=== PATIENT | female | born 2000 | race Caucasian/White ===

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

== ENCOUNTER 2022-02-20 21:04 | Emergency (ER) | payer MEDICAID ==
[2022-02-20] MEDS ORDERED: XYLOCAINE 1% HCL 20 ML MDV IJ ONE (21:05)
--- NOTE | 2022-02-20 21:14 | ERPHSYRPT ---
- History of Present Illness Time Seen by Provider: 02/20/22 21:14 Source: patient Exam Limitations: no limitations Physician History: This is a 21-year-old white female patient who states she is not and who is sexually active. She is concerned that she may have a sexually transmitted disease. She has had no vaginal discharge. She does have dysuria. She has some "bumps" on the skin around her vagina externally. She also has pain in the anal area with each bowel movement. She is passing small amount of blood with each bowel movement. She stated that these findings occurred in the last 2 days. She had anal sex for the first time a few days ago. She has no abdominal pain. She has no chest pain. She has no shortness of breath. She denies fever and she denies cough. She has no known exposure to anyone with an STD. Timing/Duration: day(s) (Last several days) Activites at Onset: sexual activity Quality: burning (With urination and defecation), other (Painful defecation) Onset Location: vaginal, other (Anal) Severity of Pain-Max: moderate (With bowel movement) Severity of Pain-Current: mild (Moderate with bowel movement) Prior abdominal problems: none Sexual intercourse history: single partner, unprotected intercourse Modifying Factors: Improves With: defecating (Worsens) Allergies/Adverse Reactions: No Known Drug Allergies Allergy (Unverified 12/09/20 01:03) Home Medications: Vits W-Ca,Fe,FA(<1Mg) [] 1 tab PO DAILY 12/09/20 [History] Hx Tetanus, Diphtheria Vaccination/Date Given: Yes Hx Influenza Vaccination/Date Given: No Hx Pneumococcal Vaccination/Date Given: No Travel Risk - International Travel Have you traveled outside of the country in past 3 weeks: No - Coronavirus Screening Are you exhibiting any of the following symptoms?: No Close contact with a COVID-19 positive Pt in past 14-21 Days: No - Vaccine Status Have you recieved a Covid-19 vaccination: No - Review of Systems Constitutional: No Symptoms Eyes: No Symptoms Ears, Nose, & Throat: No Symptoms Respiratory: No Symptoms Cardiac: No Symptoms Abdominal/Gastrointestinal: No Symptoms Genitourinary Symptoms: Dysuria, Vaginal Itching Musculoskeletal: No Symptoms Skin: No Symptoms Neurological: No Symptoms Psychological: No Symptoms Endocrine: No Symptoms Hematologic/Lymphatic: No Symptoms Immunological/Allergic: No Symptoms All Other Systems: Reviewed and Negative - Past Medical History Pertinent Past Medical History: Yes Neurological History: No Pertinent History ENT History: No Pertinent History Cardiac History: No Pertinent History Respiratory History: Asthma Endocrine Medical History: No Pertinent History Musculoskeletal History: No Pertinent History GI Medical History: No Pertinent History History: No Pertinent History Psycho-Social History: No Pertinent History Female Reproductive Disorders: No Pertinent History - Past Surgical History Past Surgical History: No Neuro Surgical History: No Pertinent History Cardiac: No Pertinent History Respiratory: No Pertinent History Gastrointestinal: No Pertinent History Genitourinary: No Pertinent History Musculoskeletal: No Pertinent History Female Surgical History: No Pertinent History - Social History Smoking Status: Former smoker Exposure to second hand smoke: No Drug Use: marijuana Patient Lives Alone: No - Nursing Vital Signs Nursing Vital Signs: Initial Vital Signs Temperature 97.9 F 02/20/22 21:16 Pulse Rate 87 02/20/22 21:16 Respiratory Rate 16 02/20/22 21:16 Blood Pressure 109/67 02/20/22 21:16 O2 Sat by Pulse Oximetry 94 L 02/20/22 21:16 Pain Scale Pain Intensity 5 - Physical Exam General Appearance: no apparent distress, alert, anxiety Eye Exam: PERRL/EOMI, eyes nml inspection Ears, Nose, Throat Exam: normal ENT inspection, moist mucous membranes Neck Exam: normal inspection, non-tender, supple, full range of motion Respiratory Exam: normal breath sounds, lungs clear, airway intact, No chest tenderness, No respiratory distress Cardiovascular Exam: regular rate/rhythm, normal heart sounds, normal peripheral pulses Gastrointestinal/Abdomen Exam: soft, normal bowel sounds, No tenderness, No guarding Pelvic Exam: other (External perivaginal area and labial skin with slightly pink and raised lesions more consistent with folliculitis post shaving. No cellulitis. No obvious external signs of STDs) Extremity Exam: normal inspection, normal range of motion, pelvis stable Neurologic Exam: alert, oriented x 3, cooperative, ict sales representative II-XII nml as tested, normal mood/affect, nml cerebellar function, nml station & gait, sensation nml Skin Exam: normal color, warm, dry Lymphatic Exam: No adenopathy SpO2 Interpretation: normal O2 Delivery: Room Air - Course Nursing assessment & vital signs reviewed: Yes Ordered Tests: Active Orders 24 hr Category Date Time Status HCG,QUALITATIVE URINE Stat Lab 02/20/22 21:33 Completed Medication Summary Generic Name Dose Route Start Last Admin Trade Name Vannessa PRN Reason Stop Dose Admin Ceftriaxone Sodium 1,000 mg 02/20/22 23:43 Ceftriaxone Sodium 1000 Mg Inj Vial IM 02/20/22 23:44 STAT ONE Discontinued Medications Generic Name Dose Route Start Last Admin Trade Name Vannessa PRN Reason Stop Dose Admin Hydrocodone Bitart/Acetaminophen 1 tab 02/20/22 23:24 02/20/22 23:40 Hydrocodone/Apap 5/325 Mg Tablet PO 02/20/22 23:25 1 tab STAT ONE Administration Hydrocodone Bitart/Acetaminophen Confirm 02/20/22 23:40 Hydrocodone/Apap 5/325 Mg Tablet Administered 02/20/22 23:41 Dose 1 tab .ROUTE .STK-MED ONE Lab/Rad Data: Laboratory Results 02/20/22 02/20/22 02/20/22 Range/Units 21:33 21:33 21:33 Urinalys Dipstick Clnc MAIN LAB Urine Color YELLOW (YELLOW) Urine Appearance CLOUDY (CLEAR) Urine pH 7.5 (5-6) Ur Specific [place] 1.020 (1.005-1.025) POC Urine Protein Conf NEGATIVE (Negative) Urine Ketones NEGATIVE (NEGATIVE) Urine Nitrite NEGATIVE (NEGATIVE) Urine Bilirubin NEGATIVE (NEGATIVE) Urine Urobilinogen 4 (0-1) mg/dL Urine Leukocytes TRACE (NEGATIVE) Urine WBC (Auto) 3-5 (0-5) /HPF Urine RBC (Auto) NONE (0-2) /HPF U Epithel Cells (Auto) FEW (FEW) /HPF Urine Bacteria (Auto) NONE SEEN (NEGATIVE) /HPF Urine RBC NEGATIVE (0-5) Hayes/ul Amorphous Crystals MODERATE (NEGATIVE) /HPF Other Casts (Auto) >50 (NEGATIVE) /LPF Urine Mucus (Auto) SLIGHT (NEGATIVE) /HPF Ur Culture Indicated? NO Urine Glucose NEGATIVE (NEGATIVE) mg/dL Urine HCG, Qual NEGATIVE (Negative) Chlamydia DNA Probe NOT DETECTED (NEGATIVE) N.gonorrhoeae DNA Probe NOT DETECTED (NEGATIVE) - Progress Progress: unchanged Air Movement: good Progress Note: 02/20/22 23:45 This patient is very concerned about a sexually transmitted disease. Chlamydia and gonorrhea are both negative. She does have a mild urinary tract infection. She states that she does get yeast infections when on antibiotics and we are providing her with Diflucan 150 mg orally 1 time. We will be providing the patient with an injection intramuscularly of 1 g of Rocephin. She was informed that this medication will cover urinary tract infection and many STDs. We will also write a prescription for Cipro and Flagyl for home. Antibiotics given: Yes Counseled pt/family regarding: lab results, need for follow-up - Departure Departure Disposition: Home Clinical Impression: Anal fissure, UTI (urinary tract infection) Condition: Stable Critical Care Time: No Referrals: PAUL VEGA [Primary Care Provider] - Follow up/PCP as directed Additional Instructions: Avoid anything penetrating the anus. Warm sitz bath's with warm soapy water or Epson salts 2-3 times a day. Keep your bowel movements soft. Increase the amount of fiber in your diet. Drink plenty of fluids each day. May try [id number] topical anesthetic agents such as lidocaine cream and apply directly to the area per the instructions of the product. If symptoms persist beyond 4 weeks or worsen, seek out referral to a public health sanitarian or general surgeon. Prescriptions: Ciprofloxacin [Cipro 500 MG] 500 mg PO BID #14 tablet Metronidazole 500 mg [Flagyl 500 MG] 500 mg PO TID #21 tablet
[2022-02-20 22:06] LABS: Appearance CLOUDY (CLEAR); Bilirubin NEGATIVE (NEGATIVE); Dipstick done @ ? MAIN LAB; Glucose NEGATIVE (NEGATIVE); Ketones NEGATIVE (NEGATIVE); Nitrite NEGATIVE (NEGATIVE); Ph 7.5 (5-6); Protein,Urine Dip NEGATIVE (Negative); RBC NEGATIVE Ery/ul (0-5); Urobilinogen 4 mg/dL (0-1)
[2022-02-20 22:10] LABS: Amourphous Crystal MODERATE /HPF (NEGATIVE); Epithelial Cells FEW /HPF (FEW); Mucus SLIGHT /HPF (NEGATIVE)
[2022-02-20 22:17] LABS: Bacteria NONE SEEN /HPF (NEGATIVE)
[2022-02-20 22:18] LABS: Urine Cultured Indicated? NO
[2022-02-20] MEDS ORDERED: NORCO 5/325 MG PO ONE (23:24)
[2022-02-20 23:35] LABS: CHLAMYDIA DNA NOT DETECTED (NEGATIVE); GC DNA Probe NOT DETECTED (NEGATIVE)
[2022-02-20] MEDS ORDERED: NORCO 5/325 MG ONE (23:40)
[2022-02-20] MEDS ORDERED: Rocephin 1000 MG INJ IM ONE (23:43)
[2022-02-20] MEDS ORDERED: Flagyl 500 MG PO ONE (23:44)
[2022-02-20] MEDS ORDERED: DIFLUCAN PO ONE (23:44)
[2022-02-20 23:47] VITALS: BP 100/64; PULSE 64; O2SAT 100
[2022-02-20] MEDS ORDERED: Rocephin 1000 MG INJ ONE (23:48)
[2022-02-20] MEDS ORDERED: Flagyl 500 MG ONE (23:48)
[2022-02-20] MEDS ORDERED: Diflucan 100 MG ONE (23:51)
== END 2022-02-21 00:28 | disposition home or self-care (01) ==
LOC: ED 21:04
DX: N39.0 Urinary tract infection, site not specified (principal); K60.2 Anal fissure, unspecified; R30.0 Dysuria; K92.1 Melena; Z72.89 Other problems related to lifestyle
CPT/HCPCS: 81015; 84703; 87491; 87591; 96372; 99284; J0696; A9270-GY

== ENCOUNTER 2023-04-21 16:49 | Observation (INO) | payer MEDICAID ==
[2023-04-21 17:27] LABS: Amphetamine,Urine NEGATIVE (NEGATIVE); Barbiturate,Urine NEGATIVE (NEGATIVE); Benzodiazepine,Urine NEGATIVE (NEGATIVE); Cocaine,Urine NEGATIVE (NEGATIVE); Methadone,Urine NEGATIVE (NEGATIVE); Opiate,Urine NEGATIVE (NEGATIVE); PCP,Urine NEGATIVE (NEGATIVE); THC,Urine NEGATIVE (NEGATIVE)
[2023-04-21 17:43] VITALS: O2SAT 97
[2023-04-21 20:39] VITALS: BP 126/83; PULSE 86
--- NOTE | 2023-04-21 22:18 | XRAY ---
Indication: Bleeding and cramping. Ultrasound biophysical profile exam performed. Comparison: None Single intrauterine with heart rate 149 BPM. Four-quadrant SWATI is 10.4 cm, largest pocket 5.6 cm. 2 points given for breathing, movements, tone, and amniotic fluid volume. Impression: Total biophysical profile score is 8 out of 8.
== END 2023-04-21 21:25 | disposition home or self-care (01) ==
LOC: OB 16:49
PROVIDERS: ADMIT Obstetrics & Gynecology; ATTEND Obstetrics & Gynecology
DX: Z34.03 Encounter for supervision of normal first pregnancy, third trimester (principal); Z3A.40 40 weeks gestation of pregnancy
CPT/HCPCS: 76819; 80307; G0378; G0379

== ENCOUNTER 2023-04-22 05:48 | Inpatient (IN) | payer MEDICAID ==
[2023-04-22] MEDS ORDERED: XYLOCAINE 1% HCL 20 ML MDV IJ PRN (06:09)
[2023-04-22] MEDS ORDERED: TYLENOL EXTRA STRENGTH 500 MG PO PRN (06:14)
[2023-04-22] MEDS ORDERED: Lactated Ringers 1,000 ML IV SCH (06:30)
[2023-04-22 06:45] LABS: Absolute Neutrophil Ct (ANC) 12.17 x10^3/uL (1.4-6.9); BASOPHIL % 0.3 % (0.0-0.4); Basophil (Absolute #) 0.04 x10^3/uL (0-0.4); Eosinophil % 0.4 % (0.00-5.0); Eosinophil (Absolute #) 0.06 x10^3/uL (0-0.5); Hematocrit 33.1 % (35-47); Hemoglobin 9.8 g/dL (12.0-16.0); IMMATURE GRAN # 0.09 x10^3u/L (0.00-0.03); IMMATURE GRAN % 0.6 % (0.00-0.4); Lymphocyte (Absolute #) 1.25 x10^3/uL (1.0-4.6); Lymphocytes % 8.7 % (24.0-44.0); Mean Cell Volume 76.6 fL (78-100); Mean Corpuscular Hemoglobin 22.7 pg (26-32); Mean Corpuscular Hgb Concent. 29.6 g/dL (32-36); Monocyte (Absolute #) 0.84 x10^3/uL (0.0-1.3); Monocytes % 5.8 % (0.0-12.0); Neutrophil % 84.2 % (36.0-66.0); Platelet Count 327 x10^3/uL (150-450); Red Blood Count 4.32 x10^6/uL (4.1-5.4); Red Cell Distribution Width 15.9 % (11.5-14.0); White Blood Count 14.5 x10^3/uL (4.0-10.5)
[2023-04-22] MEDS ORDERED: Ephedrine Sulfate 50 MG/ML IV PRN (07:03)
[2023-04-22] MEDS ORDERED: Lactated Ringers 1,000 ML IV ONE (07:03)
[2023-04-22] MEDS: PITOCIN 30 UNITS/ LR 500 ML 30 UNITS/500 ML PLAST..BAG IV SCH ×2 (07:11→10:09)
[2023-04-22] MEDS ORDERED: FENTANYL 2 MCG-BUPIV 0.125%-NS 250 ML Epidur 250 ML EPIDURAL SCH (07:15)
[2023-04-22 07:33] LABS: ABO TYPING B; Antibody Screen NEGATIVE (NEGATIVE); RH TYPING POSITIVE
[2023-04-22] MEDS ORDERED: OMNIPEN 2 GM*** 2 G in Sodium Chloride 100ML MINI-BAG PLUS 100 ML IV ONE (08:00)
--- NOTE | 2023-04-22 09:18 | PCM.HP ---
History of Present Illness - Chief Complaint Chief Complaint: r/o labor History of Present Illness: is a 22 year old female. 21 iup 40 4/7 wks gestation with no significant pmhx currently being seen for care in [place] here for being in labor stephanie every 2 to 3 minutes without srom. states uneventful care however no record available. Medications & Allergies Home Medications: Home Medication List Metronidazole 500 mg [Flagyl 500 MG] 500 mg PO BID 7 Days #14 tablet 12/09/20 [Rx] Nitrofurantoin Macro 100 mg [Macrobid 100MG Capsule] 100 mg PO BID 7 Days #14 capsule 12/09/20 [Rx] Vits W-Ca,Fe,FA(<1Mg) [] 1 tab PO DAILY 12/09/20 [History Confirmed 12/09/20] Ciprofloxacin [Cipro 500 MG] 500 mg PO BID #14 tablet 02/20/22 [Rx] Metronidazole 500 mg [Flagyl 500 MG] 500 mg PO TID #21 tablet 02/20/22 [Rx] Allergies/Adverse Reactions: Allergies Allergy/AdvReac Type Severity Reaction Status Date / Time No Known Drug Allergies Allergy Unverified 12/09/20 01:03 - Past Medical History Past Medical History: Yes Neurological History: No Pertinent History ENT History: No Pertinent History Cardiac History: No Pertinent History Respiratory History: Asthma Endocrine Medical History: No Pertinent History Musculoskelatal History: No Pertinent History GI Medical History: No Pertinent History History: No Pertinent History Pyscho-Social History: No Pertinent History Reproductive Disorders: No Pertinent History - Female History Expected Date of Delivery: 04/17/23 - Past Surgical History Past Surgical History: No Neuro Surgical History: No Pertinent History Cardiac History: No Pertinent History Respiratory Surgery: No Pertinent History GI Surgical History: No Pertinent History (vapes 10 times a day) Genitourinary Surgical Hx: No Pertinent History Musculskeletal Surgical Hx: No Pertinent History Female Surgical History: No Pertinent History - Social History Smoking Status: Former smoker How long have you smoked: 7 yrs Exposure to second hand smoke: No Alcohol: None Drug Use: marijuana - Physical Exam Vital Signs: Vital Signs - 24 hr Temp Pulse Resp BP BP Pulse Ox 04/22/23 07:04 16 04/22/23 06:30 98.1 F 75 16 125/76 98 04/22/23 06:09 99.3 F 80 16 125/76 100 04/22/23 05:59 99.3 F 80 16 125/76 100 04/22/23 05:48 99.3 F 80 16 125/76 100 Neurologic Exam: alert Cardiovascular Exam: regular rate/rhythm Pelvic Exam: other (/-2/vtx/intact upon admission) Results - Labs Lab/Micro Results: Lab Results-Last 24 Hours 04/22/23 04/22/23 Range/Units 06:30 06:30 WBC 14.5 H (4.0-10.5) x10^3/uL RBC 4.32 (4.1-5.4) x10^6/uL Hgb 9.8 L (12.0-16.0) g/dL Hct 33.1 L (35-47) % MCV 76.6 L (78-100) fL MCH 22.7 L (26-32) pg MCHC 29.6 L (32-36) g/dL RDW 15.9 H (11.5-14.0) % Plt Count 327 (150-450) x10^3/uL MPV 10.0 (7.5-11.0) fL Gran % 84.2 H (36.0-66.0) % Immature Gran % (Auto) 0.6 H (0.00-0.4) % Nucleat RBC Rel Count 0.0 (0.00-0.1) % Eos # (Auto) 0.06 (0-0.5) x10^3/uL Immature Gran # (Auto) 0.09 H (0.00-0.03) x10^3u/L Absolute Lymphs (auto) 1.25 (1.0-4.6) x10^3/uL Absolute Monos (auto) 0.84 (0.0-1.3) x10^3/uL Absolute Nucleated RBC 0.00 (0.00-0.01) x10^3u/L Lymphocytes % 8.7 L (24.0-44.0) % Monocytes % 5.8 (0.0-12.0) % Eosinophils % 0.4 (0.00-5.0) % Basophils % 0.3 (0.0-0.4) % Absolute Granulocytes 12.17 H (1.4-6.9) x10^3/uL Basophils # 0.04 (0-0.4) x10^3/uL ABO Group B Rh Factor POSITIVE Antibody Screen NEGATIVE (NEGATIVE) Assessment/Plan (1) Abdominal pain affecting Current Visit: Yes Status: Acute Code(s): O26.899 - OTH RELATED CONDITIONS, UNSPECIFIED TRIMESTER; R10.9 - UNSPECIFIED ABDOMINAL PAIN
[2023-04-22 10:07] LABS: Appearance Clear (Clear); Bilirubin Negative (Negative); Blood Negative (Negative); Glucose, Urine Negative (Negative); Ketones 15 (Negative); Leukocyte Esterase Negative (Negative); Nitrite Negative (Negative); Protein,Urine Dip 30 (Negative); Specific Gravity 1.025 (1.005-1.030)
[2023-04-22] MEDS ORDERED: Dermoplast Spray TP PRN (10:24)
[2023-04-22] MEDS ORDERED: LANSINOH 40 GM TOP PRN (10:24)
[2023-04-22] MEDS ORDERED: Mylicon 80MG PO PRN (10:24)
[2023-04-22 10:25] LABS: Bacteria None Seen /HPF (None Seen); Epithelial Cells Rare /HPF (None Seen); Hyaline Casts NONE SEEN /LPF (0-2); RBC 0-2 /HPF (0-5)
[2023-04-22 10:26] LABS: ADD URINE CULTURE? ORDERED SEPARATELY (NO)
[2023-04-22] MEDS ORDERED: Adacel Vial IM ONE (11:00)
[2023-04-22] MEDS ORDERED: TUCKS TP PRN (12:08)
[2023-04-23 05:58] LABS: Absolute Neutrophil Ct (ANC) 7.94 x10^3/uL (1.4-6.9); BASOPHIL % 0.3 % (0.0-0.4); Basophil (Absolute #) 0.03 x10^3/uL (0-0.4); Eosinophil % 1.3 % (0.00-5.0); Eosinophil (Absolute #) 0.14 x10^3/uL (0-0.5); Hematocrit 24.9 % (35-47); IMMATURE GRAN # 0.06 x10^3u/L (0.00-0.03); IMMATURE GRAN % 0.6 % (0.00-0.4); Lymphocyte (Absolute #) 1.83 x10^3/uL (1.0-4.6); Lymphocytes % 16.8 % (24.0-44.0); Mean Cell Volume 75.7 fL (78-100); Mean Corpuscular Hemoglobin 23.1 pg (26-32); Mean Corpuscular Hgb Concent. 30.5 g/dL (32-36); Mean Platelet Volume 10.6 fL (7.5-11.0); Monocyte (Absolute #) 0.88 x10^3/uL (0.0-1.3); Monocytes % 8.1 % (0.0-12.0); Neutrophil % 72.9 % (36.0-66.0); Platelet Count 280 x10^3/uL (150-450); Red Blood Count 3.29 x10^6/uL (4.1-5.4); Red Cell Distribution Width 15.9 % (11.5-14.0); White Blood Count 10.9 x10^3/uL (4.0-10.5)
[2023-04-23 06:40] LABS: Hemoglobin 7.6 g/dL (12.0-16.0)
[2023-04-23] MEDS: MOTRIN 400 MG PO PRN (08:37)
[2023-04-23] MEDS: Docusate Sodium 100 MG PO SCH ×2 (08:39→22:28)
[2023-04-23] MEDS ORDERED: FERREX 150 PO SCH (10:00)
--- NOTE | 2023-04-23 10:21 | PCM.NOTE ---
Date and Time: 04/23/23 1019 Subjective Assessment: ppd 1 sp pt resting in bed and doing well able to ambulate and tolerate diet. vss afebrile abd; soft uterus; firm lochia; mild hgb; 7.6 a/p sp ppd 1 anemia will give iron supplementation while in hospital tid will dc home tomorrow should fu in office in 3 wks OBJECTIVE DATA Vital Signs: Vital Signs - 24 hr Temp Pulse Resp BP Pulse Ox 04/23/23 08:00 98.3 F 87 18 125/80 98 04/23/23 06:00 97 04/23/23 05:00 97 04/23/23 04:00 98 04/23/23 03:00 97 04/23/23 02:00 98.4 F 87 16 129/61 99 04/23/23 01:29 98.4 F 87 16 129/61 97 04/23/23 01:00 96 04/23/23 00:00 98 04/22/23 23:00 99 04/22/23 22:00 99 04/22/23 21:00 100 04/22/23 20:00 98.4 F 80 18 127/78 97 04/22/23 16:20 98.1 F 80 18 127/73 98 04/22/23 14:00 97.7 F 81 20 137/72 100 04/22/23 13:30 109 H 20 128/83 99 04/22/23 13:00 86 20 122/78 100 04/22/23 12:30 97.7 F 80 20 121/71 99 04/22/23 12:00 97.7 F 68 20 119/69 100 04/22/23 11:45 97.7 F 71 18 118/65 98 04/22/23 11:30 97.7 F 81 18 123/81 98 04/22/23 11:15 97.7 F 71 18 108/54 97 04/22/23 11:00 97.7 F 18 118/55 98 04/22/23 10:45 97.7 F 72 18 109/62 96 Pain Assessment - Last Documented Pain Intensity [Bilateral 0 Lower Anterior/Posterior] Pain Intensity 0 Pain Scale Used 0-10 Pain Scale Intake and Output: Intake & Output 04/20/23 04/21/23 04/22/23 04/23/23 11:59 11:59 11:59 11:59 Intake Total 500 Output Total 500 Balance 0 Lab Results: Lab Results-Last 24 Hours 04/22/23 04/23/23 Range/Units 08:15 05:27 WBC 10.9 H (4.0-10.5) x10^3/uL RBC 3.29 L (4.1-5.4) x10^6/uL Hgb 7.6 L D (12.0-16.0) g/dL Hct 24.9 L (35-47) % MCV 75.7 L (78-100) fL MCH 23.1 L (26-32) pg MCHC 30.5 L (32-36) g/dL RDW 15.9 H (11.5-14.0) % Plt Count 280 (150-450) x10^3/uL MPV 10.6 (7.5-11.0) fL Gran % 72.9 H (36.0-66.0) % Immature Gran % (Auto) 0.6 H (0.00-0.4) % Nucleat RBC Rel Count 0.0 (0.00-0.1) % Eos # (Auto) 0.14 (0-0.5) x10^3/uL Immature Gran # (Auto) 0.06 H (0.00-0.03) x10^3u/L Absolute Lymphs (auto) 1.83 (1.0-4.6) x10^3/uL Absolute Monos (auto) 0.88 (0.0-1.3) x10^3/uL Absolute Nucleated RBC 0.00 (0.00-0.01) x10^3u/L Lymphocytes % 16.8 L (24.0-44.0) % Monocytes % 8.1 (0.0-12.0) % Eosinophils % 1.3 (0.00-5.0) % Basophils % 0.3 (0.0-0.4) % Absolute Granulocytes 7.94 H (1.4-6.9) x10^3/uL Basophils # 0.03 (0-0.4) x10^3/uL Urine Color Yellow (Yellow) Urine Appearance Clear (Clear) Urine pH 7.0 (4.6-8.0) Ur Specific [place] 1.025 (1.005-1.030) Urine Protein 30 (Negative) Urine Glucose (UA) Negative (Negative) mg/dL Urine Ketones 15 A (Negative) Urine Blood Negative (Negative) Urine Nitrite Negative (Negative) Urine Bilirubin Negative (Negative) Urine Urobilinogen 1.0 A (0.2) mg/dL Ur Leukocyte Esterase Negative (Negative) U Hyaline Cast (Auto) NONE SEEN (0-2) /LPF Urine Microscopic RBC 0-2 (0-5) /HPF Urine Microscopic WBC 3-5 (0-5) /HPF Ur Epithelial Cells Rare (None Seen) /HPF Urine Bacteria None Seen (None Seen) /HPF Urine Culture Reflexed ORDERED SEPARATELY (NO) Assessment/Plan (1) Abdominal pain affecting Current Visit: Yes Status: Acute Code(s): O26.899 - OTH RELATED CONDITIONS, UNSPECIFIED TRIMESTER; R10.9 - UNSPECIFIED ABDOMINAL PAIN (2) Vaginal delivery Current Visit: Yes Status: Acute Code(s): O80 - ENCOUNTER FOR FULL-TERM UNCOMPLICATED DELIVERY (3) anemia Current Visit: Yes Status: Acute Code(s): O90.81 - ANEMIA OF THE PUERPERIUM
--- NOTE | 2023-04-23 10:26 | PCM.DS ---
Discharge Summary Date of Admission: 04/22/23 09:25 Admitting Physician: SAUL GABRIEL DO Consults: Consults on Case 04/22/23 07:04 Notify Anesthesia Provider COREY 04/22/23 15:15 Navigation ONCE Primary Care Provider: PAUL VEGA Allergies Allergies No Known Drug Allergies Allergy (Unverified 12/09/20 01:03) Hospital Summary - Hospital Course Hospital Course: 23 yo who was at 40 4/7 wks gestation was admitted for labor and had been seeing providers in [place] for care. denies any medical issues upon admission. pt presented at 3 cm dilated and progressed very well and delivered live baby girl without complication live baby girl on april 22. during period did well and had a stable hgb at 7.6 and was not symptomatic. pt was able to ambulate and tolerate diet. pt was advised to take iron supplementation twice daily upon discharge and was advised to fu in office in 3 wks. all questions answered to her satisfaction as pt is stable for discharge on april 24. - Vitals & Intake/Output Vital Signs: Vital Signs Temperature 98.3 F 04/23/23 08:00 Pulse Rate 87 04/23/23 08:00 Respiratory Rate 18 04/23/23 08:00 Blood Pressure 125/80 04/23/23 08:00 O2 Sat by Pulse Oximetry 98 04/23/23 08:00 Intake & Output: Intake & Output 04/20/23 04/21/23 04/22/23 04/23/23 11:59 11:59 11:59 11:59 Intake Total 500 Output Total 500 Balance 0 - Lab Result Diagrams: 04/23/23 05:27 Lab Results-Last 24 Hrs: Lab Results-Last 24 Hours 04/22/23 04/23/23 Range/Units 08:15 05:27 WBC 10.9 H (4.0-10.5) x10^3/uL RBC 3.29 L (4.1-5.4) x10^6/uL Hgb 7.6 L D (12.0-16.0) g/dL Hct 24.9 L (35-47) % MCV 75.7 L (78-100) fL MCH 23.1 L (26-32) pg MCHC 30.5 L (32-36) g/dL RDW 15.9 H (11.5-14.0) % Plt Count 280 (150-450) x10^3/uL MPV 10.6 (7.5-11.0) fL Gran % 72.9 H (36.0-66.0) % Immature Gran % (Auto) 0.6 H (0.00-0.4) % Nucleat RBC Rel Count 0.0 (0.00-0.1) % Eos # (Auto) 0.14 (0-0.5) x10^3/uL Immature Gran # (Auto) 0.06 H (0.00-0.03) x10^3u/L Absolute Lymphs (auto) 1.83 (1.0-4.6) x10^3/uL Absolute Monos (auto) 0.88 (0.0-1.3) x10^3/uL Absolute Nucleated RBC 0.00 (0.00-0.01) x10^3u/L Lymphocytes % 16.8 L (24.0-44.0) % Monocytes % 8.1 (0.0-12.0) % Eosinophils % 1.3 (0.00-5.0) % Basophils % 0.3 (0.0-0.4) % Absolute Granulocytes 7.94 H (1.4-6.9) x10^3/uL Basophils # 0.03 (0-0.4) x10^3/uL Urine Color Yellow (Yellow) Urine Appearance Clear (Clear) Urine pH 7.0 (4.6-8.0) Ur Specific [place] 1.025 (1.005-1.030) Urine Protein 30 (Negative) Urine Glucose (UA) Negative (Negative) mg/dL Urine Ketones 15 A (Negative) Urine Blood Negative (Negative) Urine Nitrite Negative (Negative) Urine Bilirubin Negative (Negative) Urine Urobilinogen 1.0 A (0.2) mg/dL Ur Leukocyte Esterase Negative (Negative) U Hyaline Cast (Auto) NONE SEEN (0-2) /LPF Urine Microscopic RBC 0-2 (0-5) /HPF Urine Microscopic WBC 3-5 (0-5) /HPF Ur Epithelial Cells Rare (None Seen) /HPF Urine Bacteria None Seen (None Seen) /HPF Urine Culture Reflexed ORDERED SEPARATELY (NO) Final Diagnosis/Problem List - Final Discharge Diagnosis/Problem (1) Abdominal pain affecting Current Visit: Yes Status: Acute Code(s): O26.899 - OTH RELATED CONDITIONS, UNSPECIFIED TRIMESTER; R10.9 - UNSPECIFIED ABDOMINAL PAIN (2) Vaginal delivery Current Visit: Yes Status: Acute Code(s): O80 - ENCOUNTER FOR FULL-TERM UNCOMPLICATED DELIVERY (3) anemia Current Visit: Yes Status: Acute Code(s): O90.81 - ANEMIA OF THE PUERPERIUM - Discharge Disposition: Home, Self-Care Condition: Stable Prescriptions: No Action Vits W-Ca,Fe,FA(<1Mg) [] 1 tab PO DAILY Nitrofurantoin Macro 100 mg [Macrobid 100MG Capsule] 100 mg PO BID 7 Days #14 capsule Metronidazole 500 mg [Flagyl 500 MG] 500 mg PO BID 7 Days #14 tablet Ciprofloxacin [Cipro 500 MG] 500 mg PO BID #14 tablet Metronidazole 500 mg [Flagyl 500 MG] 500 mg PO TID #21 tablet Follow up with: PAUL VEGA [Primary Care Provider] - SAUL GABRIEL DO [ACTIVE STAFF] - 3 weeks (should take iron supplementation twice daily)
[2023-04-23] MEDS: FEOSOL 325 MG PO SCH ×2 (18:59→22:12)
[2023-04-24] MEDS: MOTRIN 400 MG PO PRN ×2 (01:41→15:03)
[2023-04-24 02:13] VITALS: O2SAT 96
[2023-04-24 09:46] VITALS: BP 117/73; PULSE 88
[2023-04-24 10:02] LABS: Varicella Zoster IgG 271 index (Immune >165)
[2023-04-24] MEDS: Docusate Sodium 100 MG PO SCH (10:14)
[2023-04-24] MEDS: FEOSOL 325 MG PO SCH (10:14)
[2023-04-25 06:09] LABS: RPR Non Reactive (Non Reactive)
[2023-04-25 07:38] LABS: HIV Screen 4th Generation wRfx Non Reactive (Non Reactive)
[2023-04-25 07:39] LABS: HBsAg Screen Negative (Negative)
== END 2023-04-24 15:25 | disposition home or self-care (01) | DRG 807 ==
LOC: OB 05:48 → OBSVTOIN 09:25
PROVIDERS: ADMIT Obstetrics & Gynecology; ATTEND Obstetrics & Gynecology
PROC: 10E0XZZ Delivery of Products of Conception, External Approach (ICD-10-PCS; principal; 2023-04-22)
PROC: 0KQM0ZZ Repair Perineum Muscle, Open Approach (ICD-10-PCS; 2023-04-22)
DX: O69.81X0 Labor and delivery complicated by cord around neck, without compression, not applicable or unspecified (principal); Z37.0 Single live birth; O70.1 Second degree perineal laceration during delivery; O90.81 Anemia of the puerperium; Z3A.40 40 weeks gestation of pregnancy; Z20.828 Contact with and (suspected) exposure to other viral communicable diseases
CPT/HCPCS: 36415; 59409; 81001; 84443; 85025; 86592; 86762; 86787; 86850; 86900; 86901; 87086; 87340; 87389; 90715; 96372; J0290; J2590; A9270-GY

== ENCOUNTER 2024-11-01 16:01 | Observation (INO) | payer OTHER ==
[2024-11-01 16:56] VITALS: BP 115/64; PULSE 95; RESP 18; TEMP 97.7; O2SAT 100
[2024-11-01 17:13] LABS: Appearance Clear (Clear); Bacteria None Seen /HPF (None Seen); Bilirubin Negative (Negative); Blood Negative (Negative); Epithelial Cells Rare /HPF (None Seen); Glucose, Urine Negative (Negative); Hyaline Casts NONE SEEN /LPF (0-2); Ketones Negative (Negative); Leukocyte Esterase Trace (Negative); Nitrite Negative (Negative); Protein,Urine Dip Negative (Negative); RBC 0-2 /HPF (0-5)
[2024-11-01 17:17] LABS: Absolute Neutrophil Ct (ANC) 7.34 x10^3/uL (1.56-6.13); BASOPHIL % 0.2 % (0.1-1.2); Basophil (Absolute #) 0.02 x10^3/uL (0.01-0.08); Eosinophil % 1.3 % (0.7-5.8); Eosinophil (Absolute #) 0.13 x10^3/uL (0.04-0.36); Hematocrit 27.8 % (34.1-44.9); Hemoglobin 8.7 g/dL (11.2-15.7); IMMATURE GRAN # 0.06 x10^3u/L (0.001-0.031); IMMATURE GRAN % 0.6 % (0.001-0.429); Lymphocyte (Absolute #) 1.42 x10^3/uL (1.18-3.74); Lymphocytes % 14.5 % (19.3-51.7); Mean Corpuscular Hemoglobin 25.4 pg (25.6-32.2); Mean Corpuscular Hgb Concent. 31.3 g/dL (32.2-35.5); Monocyte (Absolute #) 0.82 x10^3/uL (0.24-0.86); Monocytes % 8.4 % (4.7-12.5); Platelet Count 262 x10^3/uL (182-369); Red Blood Count 3.43 x10^6/uL (3.93-5.22); White Blood Count 9.8 x10^3/uL (3.98-10.04)
[2024-11-01 17:29] LABS: Amphetamine,Urine NEGATIVE (NEGATIVE); Barbiturate,Urine NEGATIVE (NEGATIVE); Benzodiazepine,Urine NEGATIVE (NEGATIVE); Cocaine,Urine NEGATIVE (NEGATIVE); Methadone,Urine NEGATIVE (NEGATIVE); Opiate,Urine NEGATIVE (NEGATIVE); PCP,Urine NEGATIVE (NEGATIVE); THC,Urine NEGATIVE (NEGATIVE)
== END 2024-11-01 18:15 | disposition home or self-care (01) ==
LOC: OB 16:01
PROVIDERS: ADMIT Obstetrics & Gynecology; ATTEND Obstetrics & Gynecology
DX: Z48.3 Aftercare following surgery for neoplasm (principal); Z3A.30 30 weeks gestation of pregnancy
CPT/HCPCS: 36415; 80307; 81001; 85025; G0378; G0379

== ENCOUNTER 2024-12-29 08:32 | Inpatient (IN) | payer OTHER ==
[2024-12-29 19:39] LABS: Absolute Neutrophil Ct (ANC) 7.35 x10^3/uL (1.56-6.13); BASOPHIL % 0.2 % (0.1-1.2); Basophil (Absolute #) 0.02 x10^3/uL (0.01-0.08); Eosinophil % 0.8 % (0.7-5.8); Eosinophil (Absolute #) 0.08 x10^3/uL (0.04-0.36); Hematocrit 31.2 % (34.1-44.9); Hemoglobin 9.7 g/dL (11.2-15.7); IMMATURE GRAN # 0.07 x10^3u/L (0.001-0.031); IMMATURE GRAN % 0.7 % (0.001-0.429); Lymphocyte (Absolute #) 1.48 x10^3/uL (1.18-3.74); Lymphocytes % 15.5 % (19.3-51.7); Mean Cell Volume 75.7 fL (79.4-94.8); Mean Corpuscular Hemoglobin 23.5 pg (25.6-32.2); Mean Corpuscular Hgb Concent. 31.1 g/dL (32.2-35.5); Mean Platelet Volume 10.4 fL (9.4-12.3); Monocyte (Absolute #) 0.57 x10^3/uL (0.24-0.86); Neutrophil % 76.8 % (34.0-71.1); Platelet Count 265 x10^3/uL (182-369); Red Blood Count 4.12 x10^6/uL (3.93-5.22); White Blood Count 9.6 x10^3/uL (3.98-10.04)
[2024-12-29] MEDS: PITOCIN 30 UNITS/ LR 500 ML 30 UNITS/500 ML PLAST..BAG IV SCH (19:57)
[2024-12-29] MEDS: Lactated Ringers 1,000 ML IV SCH (19:57)
[2024-12-29 19:58] LABS: Amphetamine,Urine NEGATIVE (NEGATIVE); Barbiturate,Urine NEGATIVE (NEGATIVE); Benzodiazepine,Urine NEGATIVE (NEGATIVE); Cocaine,Urine NEGATIVE (NEGATIVE); Methadone,Urine NEGATIVE (NEGATIVE); Opiate,Urine NEGATIVE (NEGATIVE); PCP,Urine NEGATIVE (NEGATIVE); THC,Urine NEGATIVE (NEGATIVE)
[2024-12-29 20:38] LABS: ABO TYPING B; Antibody Screen NEGATIVE (NEGATIVE); RH TYPING POSITIVE
[2024-12-30] MEDS ORDERED: Ephedrine Sulfate 50 MG/ML IV PRN (07:12)
[2024-12-30] MEDS: Lactated Ringers 1,000 ML IV ONE (07:22)
[2024-12-30] MEDS: FENTANYL 2 MCG-BUPIV 0.125%-NS 250 ML Epidur 250 ML EPIDURAL SCH (07:22)
[2024-12-30] MEDS: Zofran 4 MG/2 ML VIAL IV PRN (10:29)
[2024-12-30] MEDS: Dermoplast Spray TP PRN (12:40)
[2024-12-30] MEDS: TUCKS TP PRN (12:41)
[2024-12-30] MEDS: MOTRIN 400 MG PO PRN (16:51)
[2024-12-30] MEDS: FEOSOL 325 MG PO SCH ×2 (17:39→23:35)
[2024-12-30] MEDS: Docusate Sodium 100 MG PO SCH (21:53)
[2024-12-30] MEDS: CORTISONE 1% CREAM TP PRN (21:54)
[2024-12-30] MEDS: LANSINOH 40 GM TOP PRN (21:56)
[2024-12-31 04:49] LABS: BASOPHIL % 0.3 % (0.1-1.2); Basophil (Absolute #) 0.03 x10^3/uL (0.01-0.08); Eosinophil % 0.8 % (0.7-5.8); Eosinophil (Absolute #) 0.09 x10^3/uL (0.04-0.36); Hematocrit 30.4 % (34.1-44.9); Hemoglobin 9.2 g/dL (11.2-15.7); IMMATURE GRAN # 0.07 x10^3u/L (0.001-0.031); IMMATURE GRAN % 0.6 % (0.001-0.429); Lymphocyte (Absolute #) 2.18 x10^3/uL (1.18-3.74); Lymphocytes % 18.8 % (19.3-51.7); Mean Cell Volume 76.8 fL (79.4-94.8); Mean Corpuscular Hemoglobin 23.2 pg (25.6-32.2); Mean Corpuscular Hgb Concent. 30.3 g/dL (32.2-35.5); Monocyte (Absolute #) 0.83 x10^3/uL (0.24-0.86); Monocytes % 7.2 % (4.7-12.5); Neutrophil % 72.3 % (34.0-71.1); Platelet Count 261 x10^3/uL (182-369); Red Blood Count 3.96 x10^6/uL (3.93-5.22); White Blood Count 11.6 x10^3/uL (3.98-10.04)
[2024-12-31 08:24] LABS: RPR Non Reactive (Non Reactive)
[2024-12-31] MEDS ORDERED: FERREX 150 PO SCH (10:00)
--- NOTE | 2024-12-31 16:28 | PCM.NOTE ---
Date and Time: 12/31/24 1626 Subjective Assessment: ppd 1 sp pt resting in bed and doing well ambulating and tolerating diet vss afebrile abd; soft uterus; firm lochia; mild hgb; 9.2 a/p sp ppd 1 dc home tomorrow fu office in 3 wks Objective Data Vital Signs: Vital Signs - 24 hr Temp Pulse Resp BP Pulse Ox 12/31/24 16:00 98.8 F 68 14 113/61 97 12/31/24 08:00 98.2 F 88 14 117/60 99 12/31/24 04:05 65 18 112/58 96 12/31/24 01:00 98.3 F 65 18 112/58 96 12/30/24 22:26 98.2 F 64 16 114/64 100 12/30/24 19:40 98.0 F 63 16 111/56 99 12/30/24 18:30 97.7 F 62 18 108/58 98 12/30/24 18:00 97.7 F 18 102/63 100 12/30/24 17:00 97.9 F 56 L 18 108/66 100 12/30/24 16:30 97.7 F 70 18 107/63 100 Pain Assessment - Last Documented Pain Intensity [Lower Anterior 0 ] Pain Intensity 2 Pain Scale Used 0-10 Pain Scale Intake and Output: Intake & Output 12/29/24 12/30/24 12/31/24 01/01/25 11:59 11:59 11:59 11:59 Intake Total 3100 Output Total 2362 Balance 738 Weight 73.028 kg Lab Results: Lab Results-Last 24 Hours 12/29/24 12/31/24 Range/Units 19:29 04:48 WBC 11.6 H (3.98-10.04) x10^3/uL RBC 3.96 (3.93-5.22) x10^6/uL Hgb 9.2 L (11.2-15.7) g/dL Hct 30.4 L (34.1-44.9) % MCV 76.8 L (79.4-94.8) fL MCH 23.2 L (25.6-32.2) pg MCHC 30.3 L (32.2-35.5) g/dL RDW 17.0 H (11.7-14.4) % Plt Count 261 (182-369) x10^3/uL MPV 10.0 (9.4-12.3) fL Gran % 72.3 H (34.0-71.1) % Immature Gran % (Auto) 0.6 H (0.001-0.429) % Nucleat RBC Rel Count 0.0 (0.00-0.2) % Eos # (Auto) 0.09 (0.04-0.36) x10^3/uL Immature Gran # (Auto) 0.07 H (0.001-0.031) x10^3u/L Absolute Lymphs (auto) 2.18 (1.18-3.74) x10^3/uL Absolute Monos (auto) 0.83 (0.24-0.86) x10^3/uL Absolute Nucleated RBC 0.00 (0.00-0.012) x10^3u/L Lymphocytes % 18.8 L (19.3-51.7) % Monocytes % 7.2 (4.7-12.5) % Eosinophils % 0.8 (0.7-5.8) % Basophils % 0.3 (0.1-1.2) % Absolute Granulocytes 8.40 H (1.56-6.13) x10^3/uL Basophils # 0.03 (0.01-0.08) x10^3/uL RPR Non Reactive (Non Reactive) Assessment/Plan (1) Vaginal delivery Current Visit: No Status: Acute Code(s): O80 - ENCOUNTER FOR FULL-TERM UNCOMPLICATED DELIVERY
--- NOTE | 2024-12-31 16:32 | PCM.DS ---
Discharge Summary Date of Admission: 12/30/24 08:32 Admitting Physician: SAUL GABRIEL DO Consults: Consults on Case 12/30/24 16:03 Navigation ONCE Primary Care Provider: NO FAMILY DOCTOR Allergies Allergies No Known Drug Allergies Allergy (Unverified 12/09/20 01:03) Hospital Summary - Hospital Course Hospital Course: pt admitted on dec 29 for low dose pitocin at 39 wks gestation and subsequently delivered on dec 30 live baby boy without complication with no perineal tear that was noted. during care did well able to ambulate and tolerate diet and was noted having a hgb at 9.2 and was instructed to take her iron supplementation twice daily. she was also advised to fu in office in 3 wks. all questions answered to her satisfaction. - Vitals & Intake/Output Vital Signs: Vital Signs Temperature 98.8 F 12/31/24 16:00 Pulse Rate 68 12/31/24 16:00 Respiratory Rate 14 12/31/24 16:00 Blood Pressure 113/61 12/31/24 16:00 O2 Sat by Pulse Oximetry 97 12/31/24 16:00 Intake & Output: Intake & Output 12/29/24 12/30/24 12/31/24 01/01/25 11:59 11:59 11:59 11:59 Intake Total 3100 Output Total 2362 Balance 738 Weight 73.028 kg - Lab Result Diagrams: 12/31/24 04:48 Lab Results-Last 24 Hrs: Lab Results-Last 24 Hours 12/29/24 12/31/24 Range/Units 19:29 04:48 WBC 11.6 H (3.98-10.04) x10^3/uL RBC 3.96 (3.93-5.22) x10^6/uL Hgb 9.2 L (11.2-15.7) g/dL Hct 30.4 L (34.1-44.9) % MCV 76.8 L (79.4-94.8) fL MCH 23.2 L (25.6-32.2) pg MCHC 30.3 L (32.2-35.5) g/dL RDW 17.0 H (11.7-14.4) % Plt Count 261 (182-369) x10^3/uL MPV 10.0 (9.4-12.3) fL Gran % 72.3 H (34.0-71.1) % Immature Gran % (Auto) 0.6 H (0.001-0.429) % Nucleat RBC Rel Count 0.0 (0.00-0.2) % Eos # (Auto) 0.09 (0.04-0.36) x10^3/uL Immature Gran # (Auto) 0.07 H (0.001-0.031) x10^3u/L Absolute Lymphs (auto) 2.18 (1.18-3.74) x10^3/uL Absolute Monos (auto) 0.83 (0.24-0.86) x10^3/uL Absolute Nucleated RBC 0.00 (0.00-0.012) x10^3u/L Lymphocytes % 18.8 L (19.3-51.7) % Monocytes % 7.2 (4.7-12.5) % Eosinophils % 0.8 (0.7-5.8) % Basophils % 0.3 (0.1-1.2) % Absolute Granulocytes 8.40 H (1.56-6.13) x10^3/uL Basophils # 0.03 (0.01-0.08) x10^3/uL RPR Non Reactive (Non Reactive) Micro Results-Entire Visit: Microbiology 12/30/24 11:30 Urine Culture - Preliminary Catherized NO GROWTH TO DATE Final Diagnosis/Problem List - Final Discharge Diagnosis/Problem (1) Vaginal delivery Current Visit: No Status: Acute Code(s): O80 - ENCOUNTER FOR FULL-TERM UNCOMPLICATED DELIVERY - Discharge Disposition: Home, Self-Care Condition: Stable Prescriptions: No Action Vits W-Ca,Fe,FA(<1Mg) [] 1 tab PO DAILY Ferrous Sulfate [Ferosul] 325 mg PO BID Follow up with: DOCTOR,NO FAMILY [Primary Care Provider] - SAUL GABRIEL DO [ACTIVE STAFF] - 3 weeks (should fu in office in 3 wks should call me for any issues that may arise upon discharge)
[2024-12-31 20:04] VITALS: RESP 18
[2024-12-31] MEDS ORDERED: FEOSOL 325 MG PO SCH (22:00)
[2024-12-31] MEDS: TYLENOL EXTRA STRENGTH 500 MG PO PRN (23:41)
[2025-01-01] MEDS: Adacel Vial IM ONE (08:18)
[2025-01-01 08:40] VITALS: BP 116/59; PULSE 77; TEMP 98; O2SAT 97
== END 2025-01-01 11:00 | disposition home or self-care (01) | DRG 807 ==
LOC: MED SURG 08:32 → EDSTATUS 16:32 → MED SURG 18:57 → OB 18:58 → OBSVTOIN 12-30 08:32
PROVIDERS: ADMIT Obstetrics & Gynecology; ATTEND Obstetrics & Gynecology
PROC: 10E0XZZ Delivery of Products of Conception, External Approach (ICD-10-PCS; principal; 2024-12-30)
DX: O80 Encounter for full-term uncomplicated delivery (principal); Z37.0 Single live birth; Z3A.39 39 weeks gestation of pregnancy
CPT/HCPCS: 36415; 59409; 80307; 85025; 86592; 86850; 86900; 86901; 87086; 90471; 90715; G0379; J2405; J2590; A9270-GY